=== PATIENT | male | born 1975 | race Caucasian/White ===

== ENCOUNTER → 2020-08-04 08:08 | Outpatient (CLI) | payer OTHER, SELFPAY ==
--- NOTE | ~2020-08-04 | XR_ITS ---
XR knee RT 3V 08/04/2020 08:53 INDICATION: Right knee pain PROCEDURE: 3 views right knee COMPARISON: No prior studies for comparison. FINDINGS: Fracture, dislocation or subluxation is not identified. The soft tissues appear within norm al limits. No foreign bodies are identified. IMPRESSION: 1: NO ACUTE BONE OR JOINT ABNORMALITY IDENTIFIED. Reviewed, dictated and finalized at location B.
== END ==
PROVIDERS: PCP Internal Medicine; Visit Provider Clinical Nurse Specialist
DX: S89.90XA Unspecified injury of unspecified lower leg, initial encounter (principal); X58.XXXA Exposure to other specified factors, initial encounter
CPT/HCPCS: 73562

== ENCOUNTER → 2020-08-22 09:50 | Outpatient (CLI) | payer OTHER, SELFPAY ==
--- NOTE | ~2020-08-22 | MR_ITS ---
EXAMINATION: MR knee RT wo con DATE: 08/22/2020 10:37 INDICATION: Right knee pain post injury 2 months prior. TECHNIQUE: Magnetic resonance imaging (MRI) of the right knee was performed without intravenous contr ast. Sequences included coronal PD-weighted FSE, coronal PD-weighted FS FSE, sagittal T2-weighted FS E, sagittal PD-weighted FS FSE and axial PD weighted fat saturated FSE. COMPARISON: None. FINDINGS: Medial compartment: Medial meniscus is normal. Partial thickness cartilage loss along the medial side of the medial tibia l plateau and along the weightbearing medial femoral condyle with generally smooth chondral surface. Small region of deep chondral fissuring with prominent underlying subarticular edema along the medial aspect of the anterior weightbearing medial femoral condyle. Lateral compartment: Lateral meniscus is normal. Subtle signal heterogeneity to the cartilage at the central to posterior aspect of the lateral tibial plateau and the anterior weightbearing lateral femoral condyle suspiciou s for partial thickness fissuring without degenerative subarticular changes. Patellofemoral compartment: Partial-thickness cartilage loss with deep fissuring but without degenerative subarticular changes at the trochlear groove and inferomedial aspect of the lateral trochlea. Partial thickness chondral fis suring without degenerative subarticular changes at the inferior aspect of the medial patellar facet. Ligaments and tendons: Anterior and posterior cruciate ligaments are normal. The medial collateral ligament and fibular indra ateral ligament complex are normal. The extensor mechanism is normal. The visualized medial and later al hamstring tendons as well as the iliotibial band are normal. Fluid: Physiologic amount of fluid in the joint space. No loose osteochondral bodies identified. Osseous/other: Aside from the subarticular edema at the medial femoral condyle there is normal marrow signal. No fra cture or pathologic marrow replacing process. IMPRESSION: 1. Mild osteoarthritis with high-grade chondromalacia along the weightbearing medial femoral condyle and moderate grade chondral malacia at the patellofemoral compartment and likely along the lateral ti bial plateau. 2. Normal menisci and stabilizing ligaments of the knee. Reviewed, dictated and finalized at location A. IMPRESSION: 1. Mild osteoarthritis with high-grade chondromalacia along the weightbearing m edial femoral condyle and moderate grade chondral malacia at the patellofemoral compartment and likely along the lateral tibial plateau. 2. Normal menisci and stabilizing ligaments of the knee.
== END ==
PROVIDERS: PCP Internal Medicine; Visit Provider Clinical Nurse Specialist
DX: M17.11 Unilateral primary osteoarthritis, right knee (principal)
CPT/HCPCS: 73721

== ENCOUNTER 2021-10-16 07:43 | Outpatient (CLI) | payer OTHER, SELFPAY ==
--- NOTE | 2021-10-18 19:27 | WPDHOMESLEEP ---
Sleep Study - Home Unattended Date of Study: 10/16/21 <Debbie Shetty DO - Last Filed: 10/18/21 19:36> Ordering Provider: Ellen Woody NP <Debbie Shetty - Last Filed: 10/18/21 19:36> Interpreting Provider: Debbie Shetty DO <Debbie Shetty, - Last Filed: 10/18/21 19:36> Home Sleep Study Type: Apnea Link Air <Debbie Shetty DO - Last Filed: 10/18/21 19:36> Height: 1.78 m <Debbie Shetty DO - Last Filed: 10/18/21 19:36> Weight: 83.915 kg <Debbie Shetty DO - Last Filed: 10/18/21 19:36> Body Mass Index: 26.5 <Debbie Shetty - Last Filed: 10/18/21 19:36> Neck Circumference (inches): 15.5 <Debbie Shetty - Last Filed: 10/18/21 19:36> [place]: 9 <Debbie Shetty DO - Last Filed: 10/18/21 19:36> Reason for Sleep Study Unrefreshing sleep and daytime hypersomnia <Debbie Shetty DO - Last Filed: 10/18/21 19:36> Sleep History The patient is a 46-year-old male with hypertension, anxiety, GERD and seizure disorder that had a home sleep test ordered by his primary care due to unrefreshing sleep and daytime hypersomnia. The patient frequently awakens from sleep short of breath. He occasionally awakens at night with heartburn, belching or cough. He constantly snores loud enough others complain. He frequently has trouble sleeping when he has a cold. He occasionally wakes up gasping for air throughout the night. He constantly has breathing problems at night observed by others. He occasionally sweats excessively at night. He rarely notices heart palpitations or irregular heartbeats during the night. He frequently falls asleep during the day and rarely while driving. He denies sleep paralysis and cataplexy. He frequently has trouble at work due to sleepiness. He rarely experiences vivid dreamlike scenes upon awakening or falling asleep. He rarely has nightmares. He rarely feels sad or depressed. He occasionally feels anxious. He occasionally notices parts of his body jerk. He rarely kicks during the night. He rarely has crawling and aching feelings in his legs as well as leg pain during the night. Rarely grinds his teeth during sleep but never awakens with morning jaw pain. He is rarely bothered by pain during the day and awakened by pain during the night. He denies waking up feeling stiff in the morning sore and achy muscles. He goes to bed between 9 and 10:00 p.m. on weekdays and between 10 and 11:00 p.m. on weekends. It does not taken 1 to fall asleep. He is unsure how many times he wakes up throughout the night. He did not specify a wake-up time on the weekdays or weekends. He typically gets between 4 and 8 hours of sleep per night. He currently lives with his and 2 children. His shifts are rotating. He does not consume any caffeinated beverages within 2 hours of bedtime. He does not engage in physical exercise before bedtime. He will occasionally read before falling asleep. He does watch television before falling asleep he does not take naps in the afternoon or evening. He quit smoking 20 years ago. He consumes 2 caffeinated beverages per day. He has up to 3 alcoholic beverages per day. He denies recreational drug use. <Debbie Shetty DO - Last Filed: 10/18/21 19:36> [facility] Past Medical History Medical History: Medical History Depression GERD (gastroesophageal reflux disease) Knee cartilage, torn, right Seizure disorder Tendonitis <Debbie Shetty DO - Last Filed: 10/18/21 19:36> Surgical History Surgical History: Surgical History H/O bone graft Bone/Nerve graft on foot H/O knee surgery Right 11/2020 <Debbie Shetty DO - Last Filed: 10/18/21 19:36> Family History Family History: Family History (Reviewed 10/18/21 @ 19:31
[2021-10-18 19:35] VITALS: BMI 26.5
== END 2021-10-17 12:22 | disposition home or self-care (01) ==
LOC: ANHCSM 07:44
PROVIDERS: PCP Internal Medicine; Visit Provider Nurse Practitioner
DX: G47.33 Obstructive sleep apnea (adult) (pediatric) (principal); G47.10 Hypersomnia, unspecified
CPT/HCPCS: 95806

== ENCOUNTER → 2022-02-21 07:07 | Outpatient (CLI) | payer OTHER, SELFPAY ==
--- NOTE | ~2022-02-21 | MR_ITS ---
EXAMINATION: MR foot RT wo con DATE: 02/21/2022 07:57 INDICATION: Right foot stress fracture and peroneal tendinitis TECHNIQUE: Magnetic resonance imaging (MRI) of the right foot was performed without intravenous contr ast. Sequences included sagittal T1-weighted FSE, sagittal fluid sensitive FSE STIR, coronal PD-weigh larry FS FSE, coronal T1-weighted FSE, axial PD-weighted FS FSE, and axial PD-weighted FSE. COMPARISON: None FINDINGS: Medial ankle ligaments: Deep and superficial deltoid ligaments as well as the spring ligament are normal. Lateral ankle ligaments: The anterior and posterior inferior tibiofibular ligaments are normal. The anterior talofibular, calc aneofibular and posterior talofibular ligaments are normal. Tendons: Achilles tendon is normal. The peroneus longus tendon is normal. Mild tendinopathy and longitudinal s plit tearing of the peroneus brevis brevis tendon. There is convex margin to the retromalleolar groov e with small portion of the peroneus brevis tendon medial to the split tear extending across a small osteophyte at the insertion of the posterior inferior tibiofibular ligament. The tibialis anterior an d extensor hallucis longus and extensor digitorum longus tendons are normal. The tibialis posterior, flexor digitorum longus and flexor hallucis longus tendons are normal. Plantar fascia: Plantar aponeurosis is normal. Bones/other: There is marrow edema and small amount of callus formation around a likely subacute nondisplaced obli que fracture at the neck of the third metatarsal consistent with provided history of stress fracture. There is additional edema without evident fracture line at the head of the first proximal phalanx wh ich may be related to moderate osteoarthritis at the first interphalangeal joint. Additional mild ost eoarthritis in the first metatarsophalangeal joint. Otherwise normal marrow signal throughout. The Li sfranc ligament complex as well as the collateral ligament complex at the metatarsophalangeal and int erphalangeal joints are normal. Fluid: Physiologic amount fluid in the joint spaces. No tenosynovitis, bursitis or other abnormal fluid indra ections. IMPRESSION: 1. Nondisplaced likely subacute stress fracture at the neck of the third metatarsal. 2. Mild tendinopathy and longitudinal split tearing of the peroneus brevis tendon at the level of the convex retromalleolar groove. 3. Mild osteoarthritis at the first metatarsophalangeal and interphalangeal joints. Reviewed, dictated and finalized at location B. IMPRESSION: 1. Nondisplaced likely subacute stress fracture at the neck of the third metata rsal. 2. Mild tendinopathy and longitudinal split tearing of the peroneus brevis tend on at the level of the convex retromalleolar groove. 3. Mild osteoarthritis at the first metatarsophalangeal and interphalangeal annelise nts.
== END ==
PROVIDERS: PCP Hospitalist; Visit Provider Podiatrist Foot & Ankle Surgery
DX: M76.71 Peroneal tendinitis, right leg (principal); M19.071 Primary osteoarthritis, right ankle and foot
CPT/HCPCS: 73718